=== PATIENT | male | born 1980 | race Two or more races ===

== ENCOUNTER 2016-12-14 05:36 | Inpatient (IN) | payer BC ==
[~2016-12-14] VITALS: Ht 177.8 cm; Wt 87.5 kg
[2016-12-14 06:15] LABS: Urine Bilirubin Negative (Negative); Urine Blood 2+ /uL (Negative); Urine Glucose Normal (Normal); Urine Ketone Negative (Negative); Urine Mucus FEW (None Seen); Urine Nitrite Negative (Negative); Urine RBC 4 /hpf (0 - 3); Urine Urobilinogen Normal (Negative); Urine pH 6.5 (5.0-8.0)
[2016-12-14 06:23] LABS: Urine Color Yellow (Yellow)
[2016-12-14 07:48] LABS: Basophils # (auto) 0 uL; Basophils % (auto) 0.3 % (0.0-2.0); Eosinophils # (auto) 0.1 uL; Eosinophils % (auto) 0.7 % (0.0-7.0); Hematocrit 40.1 % (41.0-53.0); Hemoglobin 13.7 g/dL (13.5-17.5); Lymphocytes # (auto) 1.2 uL; Lymphocytes % (auto) 8.1 % (10.0-50.0); Mean Corpuscular Hgb Conc. 34.3 g/dL (32.0-36.0); Mean Corpuscular Volume 90.5 fL (80.0-100.0); Mean Platelet Volume 6.7 fL (6.9-10.8); Monocytes # (auto) 1.3 uL; Monocytes % (auto) 8.2 % (0.0-12.0); Neutrophils # (auto) 12.7 uL; Neutrophils % (auto) 82.7 % (37.0-80.0); Platelet Count (auto) 355 10^3/uL (140-450); White Blood Cell 15.3 10^3/uL (4.4-10.8)
[2016-12-14] MEDS ORDERED: SODIUM CHLORIDE 0.9% 1,000 ML IVB ONE (08:10)
[2016-12-14 08:11] LABS: Albumin 3.1 g/dL (3.4-5.0); BUN/Creatinine Ratio 12.2; Bilirubin, Total 0.4 mg/dL (0.2-1.0); Calcium 9.3 mg/dL (8.5-10.1); Potassium 4.6 mmol/L (3.5-5.1); Total Protein 8.3 g/dL (6.4-8.2)
[2016-12-14] MEDS ORDERED: LEVOFLOXACIN 500MG 100 ML IV ONE (08:15)
[2016-12-14] MEDS ORDERED: NITROGLYCERIN 0.4 MG SL TAB SL PRN (08:45)
[2016-12-14] MEDS ORDERED: ALBUTEROL SULF 2.5 MG/0.5ML(0.5%) NEB SOLN NEB PRN (08:45)
[2016-12-14] MEDS ORDERED: MORPHINE SULF INJ 2 MG/ML SYRINGE 1ML IV PRN (08:45)
[2016-12-14] MEDS ORDERED: LACTULOSE 20Gm/30ML SOLN PO PRN (08:45)
[2016-12-14] MEDS ORDERED: LORazepam 0.5 MG TAB PO PRN (08:45)
[2016-12-14] MEDS ORDERED: PROMETHAZINE HCL 25 MG/ML 1ML IV PRN (08:45)
[2016-12-14] MEDS ORDERED: TUBERCULIN PPD 5 UNIT/0.1 ML ID ONE ×2 (08:45→11:45)
[2016-12-14] MEDS ORDERED: TEMAZEPAM 15 MG CAP PO PRN (08:45)
[2016-12-14] MEDS ORDERED: KETOROLAC TROMETH 30 MG/ML 1ML VIAL IV ONE (09:15)
[2016-12-14] MEDS ORDERED: IOHEXOL 300 MG/ML 100ML BOTTLE IJ ONE (09:27)
[2016-12-14 09:29] VITALS: BP 118/71
[2016-12-14] MEDS: LEVOFLOXACIN 500MG 100 ML IV SCH (09:42)
[2016-12-14] MEDS: ENOXAPARIN SOD 40 MG/0.4 ML SYRINGE SC SCH (10:13)
[2016-12-14] MEDS: ALBUTEROL SULF 2.5 MG/0.5ML(0.5%) NEB SOLN NEB SCH ×2 (12:52→19:05)
[2016-12-14] MEDS: CLINDAMYCIN 600MG IV 50 ML IV SCH ×2 (14:24→21:27)
[2016-12-14] MEDS: HYDROcodone-ACET 5/325MG TAB PO PRN (14:37)
[2016-12-14] MEDS: ACETAMINOPHEN 500 MG TAB PO PRN (19:53)
[2016-12-14] MEDS: MORPHINE SULF INJ 2 MG/ML SYRINGE 1ML IV PRN (19:53)
[2016-12-14 20:00] VITALS: BP 119/66
[2016-12-14 22:00] VITALS: BP 119/66
[2016-12-15] MEDS: ALBUTEROL SULF 2.5 MG/0.5ML(0.5%) NEB SOLN NEB SCH ×4 (00:48→18:58)
[2016-12-15] MEDS: MORPHINE SULF INJ 2 MG/ML SYRINGE 1ML IV PRN ×2 (01:04→05:23)
[2016-12-15] MEDS: HYDROcodone-ACET 5/325MG TAB PO PRN (04:28)
[2016-12-15 05:00] VITALS: BP 128/68
[2016-12-15] MEDS: CLINDAMYCIN 600MG IV 50 ML IV SCH ×2 (05:29→13:45)
[2016-12-15] MEDS ORDERED: HYDROmorphone HCL 2 MG/ML VL IV ONE (09:15)
[2016-12-15] MEDS: LEVOFLOXACIN 500MG 100 ML IV SCH (09:26)
[2016-12-15] MEDS: ENOXAPARIN SOD 40 MG/0.4 ML SYRINGE SC SCH (09:26)
[2016-12-15 09:41] LABS: Basophils # (auto) 0 uL; Basophils % (auto) 0.2 % (0.0-2.0); Eosinophils # (auto) 0 uL; Eosinophils % (auto) 0.2 % (0.0-7.0); Hematocrit 37.3 % (41.0-53.0); Hemoglobin 12.6 g/dL (13.5-17.5); Lymphocytes # (auto) 1.1 uL; Lymphocytes % (auto) 7.2 % (10.0-50.0); Mean Corpuscular Hemoglobin 30.8 pg (28.0-32.0); Mean Corpuscular Hgb Conc. 33.9 g/dL (32.0-36.0); Mean Platelet Volume 6.8 fL (6.9-10.8); Monocytes # (auto) 1.3 uL; Monocytes % (auto) 8.6 % (0.0-12.0); Neutrophils # (auto) 12.9 uL; Neutrophils % (auto) 83.8 % (37.0-80.0); Platelet Count (auto) 321 10^3/uL (140-450); Red Cell Distribution Width 13.2 % (11.8-14.3); White Blood Cell 15.4 10^3/uL (4.4-10.8)
[2016-12-15 09:56] VITALS: BP 119/73
[2016-12-15 10:07] LABS: Albumin 2.6 g/dL (3.4-5.0); BUN/Creatinine Ratio 12.2; Bilirubin, Total 0.6 mg/dL (0.2-1.0); Calcium 8.8 mg/dL (8.5-10.1); Potassium 4.1 mmol/L (3.5-5.1); Total Protein 7.7 g/dL (6.4-8.2)
[2016-12-15] MEDS: HYDROcodone-ACET 10/325MG TAB PO PRN ×2 (12:31→17:58)
[2016-12-15 13:49] VITALS: BP 118/69
[2016-12-15] MEDS ORDERED: VANCOMYCIN PER PHARMACY 0 MG IV SCH (14:00)
[2016-12-15] MEDS ORDERED: KETOROLAC TROMETH 30 MG/ML 1ML VIAL IV PRN (14:00)
[2016-12-15] MEDS ORDERED: cefTRIAXone 1GM/50ML D5W 50 ML IV ONE (14:45)
[2016-12-15 16:54] VITALS: BP 118/64
[2016-12-15] MEDS: VANCOMYCIN 1,250 MG in D5W 5% 250 ML IV SCH (17:44)
[2016-12-15 20:00] VITALS: BP 119/65
[2016-12-15 22:00] VITALS: BP 119/65
[2016-12-15] MEDS: ACETAMINOPHEN 500 MG TAB PO PRN (22:22)
[2016-12-16] MEDS: HYDROcodone-ACET 10/325MG TAB PO PRN ×4 (00:06→18:38)
[2016-12-16] MEDS: MORPHINE SULF INJ 2 MG/ML SYRINGE 1ML IV PRN ×3 (00:33→15:54)
[2016-12-16] MEDS: ALBUTEROL SULF 2.5 MG/0.5ML(0.5%) NEB SOLN NEB SCH ×4 (00:46→19:57)
[2016-12-16] MEDS: VANCOMYCIN 1,250 MG in D5W 5% 250 ML IV SCH ×3 (01:09→17:27)
[2016-12-16 05:00] VITALS: BP 113/66
[2016-12-16 05:42] LABS: Basophils # (auto) 0 uL; Basophils % (auto) 0.2 % (0.0-2.0); Eosinophils # (auto) 0.1 uL; Eosinophils % (auto) 0.8 % (0.0-7.0); Hematocrit 36.3 % (41.0-53.0); Hemoglobin 12.4 g/dL (13.5-17.5); Lymphocytes % (auto) 8.3 % (10.0-50.0); Mean Corpuscular Hemoglobin 31.1 pg (28.0-32.0); Mean Corpuscular Hgb Conc. 34.2 g/dL (32.0-36.0); Mean Corpuscular Volume 91.1 fL (80.0-100.0); Mean Platelet Volume 6.7 fL (6.9-10.8); Monocytes # (auto) 1.3 uL; Neutrophils # (auto) 10.2 uL; Neutrophils % (auto) 80.7 % (37.0-80.0); Nucleated Red Blood Cells % 0.1 %; Platelet Count (auto) 307 10^3/uL (140-450); Red Cell Distribution Width 13.2 % (11.8-14.3); White Blood Cell 12.6 10^3/uL (4.4-10.8)
[2016-12-16 05:58] LABS: INR 1.12 (0.9-1.15); Partial Thromboplastin Time 33.1 sec (22.64-33.71); Prothrombin Time 12.2 sec (9.37-12.3)
[2016-12-16 06:05] LABS: BUN/Creatinine Ratio 11.1; Calcium 8.7 mg/dL (8.5-10.1); Potassium 4.2 mmol/L (3.5-5.1)
[2016-12-16 08:00] VITALS: BP 110/60
[2016-12-16] MEDS ORDERED: cefTRIAXone 1GM/50ML D5W 50 ML IV SCH (09:00)
[2016-12-16 09:43] VITALS: BP 116/67
[2016-12-16] MEDS ORDERED: PIPERACILLIN-TAZOB 3.375GM 100 ML IV ONE (10:15)
[2016-12-16] MEDS ORDERED: PIPERACILLIN-TAZOB 3.375GM 100 ML IV SCH (12:00)
[2016-12-16] MEDS ORDERED: FLUCONAZOLE 200MG/100ML 100 ML IV ONE (12:15)
[2016-12-16 13:00] VITALS: BP 114/68
[2016-12-16] MEDS: metroNIDAZOLE 500MG/100ML 100 ML IV SCH ×2 (16:30→23:41)
[2016-12-16] MEDS: ACETAMINOPHEN 500 MG TAB PO PRN (17:49)
[2016-12-16 18:29] VITALS: BP 118/63
[2016-12-16] MEDS: PIPERACILLIN-TAZOB 3.375GM 100 ML IV SCH (20:44)
[2016-12-16 22:00] VITALS: BP 118/63
[2016-12-17] MEDS: VANCOMYCIN 1,250 MG in D5W 5% 250 ML IV SCH ×3 (01:28→18:16)
[2016-12-17] MEDS: HYDROcodone-ACET 10/325MG TAB PO PRN ×4 (01:29→22:28)
[2016-12-17] MEDS: PIPERACILLIN-TAZOB 3.375GM 100 ML IV SCH ×4 (03:00→22:21)
[2016-12-17 05:00] VITALS: BP 113/64
[2016-12-17] MEDS: ALBUTEROL SULF 2.5 MG/0.5ML(0.5%) NEB SOLN NEB SCH ×3 (05:58→19:13)
[2016-12-17] MEDS: metroNIDAZOLE 500MG/100ML 100 ML IV SCH (06:29)
[2016-12-17 07:18] LABS: Basophils # (auto) 0 uL; Basophils % (auto) 0.4 % (0.0-2.0); Eosinophils # (auto) 0.1 uL; Eosinophils % (auto) 1.2 % (0.0-7.0); Hematocrit 35.7 % (41.0-53.0); Hemoglobin 12.2 g/dL (13.5-17.5); Lymphocytes % (auto) 8.7 % (10.0-50.0); Mean Corpuscular Hemoglobin 31.1 pg (28.0-32.0); Mean Corpuscular Hgb Conc. 34.1 g/dL (32.0-36.0); Mean Corpuscular Volume 91.1 fL (80.0-100.0); Mean Platelet Volume 6.9 fL (6.9-10.8); Monocytes # (auto) 1.2 uL; Monocytes % (auto) 10.2 % (0.0-12.0); Neutrophils # (auto) 9.5 uL; Neutrophils % (auto) 79.5 % (37.0-80.0); Platelet Count (auto) 346 10^3/uL (140-450); Red Cell Distribution Width 13.4 % (11.8-14.3); White Blood Cell 11.9 10^3/uL (4.4-10.8)
[2016-12-17 07:50] LABS: Albumin 2.1 g/dL (3.4-5.0); Calcium 8.8 mg/dL (8.5-10.1); Potassium 4.2 mmol/L (3.5-5.1)
[2016-12-17 07:54] LABS: BUN/Creatinine Ratio 11.4; Bilirubin, Total 0.4 mg/dL (0.2-1.0); Total Protein 7.1 g/dL (6.4-8.2)
[2016-12-17 08:00] VITALS: BP 114/64
[2016-12-17 12:00] VITALS: BP 123/70
[2016-12-17 14:17] VITALS: BP 114/64
[2016-12-17] MEDS: FLUCONAZOLE 200MG/100ML 100 ML IV SCH (15:04)
[2016-12-17 17:00] VITALS: BP 127/64
[2016-12-17 22:00] VITALS: BP 117/67
[2016-12-18] MEDS: ALBUTEROL SULF 2.5 MG/0.5ML(0.5%) NEB SOLN NEB SCH ×4 (00:20→18:54)
[2016-12-18] MEDS: VANCOMYCIN 1,250 MG in D5W 5% 250 ML IV SCH ×3 (01:12→17:43)
[2016-12-18] MEDS: PIPERACILLIN-TAZOB 3.375GM 100 ML IV SCH ×4 (03:22→21:15)
[2016-12-18 05:00] VITALS: BP 125/69
[2016-12-18 07:26] LABS: Basophils # (auto) 0 uL; Basophils % (auto) 0.3 % (0.0-2.0); Eosinophils # (auto) 0.5 uL; Eosinophils % (auto) 4.5 % (0.0-7.0); Hematocrit 35.8 % (41.0-53.0); Hemoglobin 12.2 g/dL (13.5-17.5); Lymphocytes # (auto) 1.1 uL; Lymphocytes % (auto) 10.2 % (10.0-50.0); Mean Corpuscular Hemoglobin 31.2 pg (28.0-32.0); Mean Corpuscular Hgb Conc. 34.2 g/dL (32.0-36.0); Mean Corpuscular Volume 91.5 fL (80.0-100.0); Mean Platelet Volume 6.6 fL (6.9-10.8); Monocytes # (auto) 0.8 uL; Monocytes % (auto) 7.2 % (0.0-12.0); Neutrophils # (auto) 8.3 uL; Neutrophils % (auto) 77.8 % (37.0-80.0); Nucleated Red Blood Cells % 0.1 %; Platelet Count (auto) 390 10^3/uL (140-450); Red Cell Distribution Width 13.1 % (11.8-14.3); White Blood Cell 10.6 10^3/uL (4.4-10.8)
[2016-12-18 07:52] LABS: Albumin 2.1 g/dL (3.4-5.0); BUN/Creatinine Ratio 14.9; Bilirubin, Total 0.4 mg/dL (0.2-1.0); Calcium 8.7 mg/dL (8.5-10.1); Potassium 3.8 mmol/L (3.5-5.1); Total Protein 7.2 g/dL (6.4-8.2)
[2016-12-18] MEDS: HYDROcodone-ACET 10/325MG TAB PO PRN ×2 (08:45→15:42)
[2016-12-18] MEDS: FLUCONAZOLE 200MG/100ML 100 ML IV SCH (10:09)
[2016-12-18] MEDS: HYDROCORTONE 1% TOPICAL CREAM 30 GM TUBE TOP SCH ×2 (12:00→22:00)
[2016-12-18 14:56] VITALS: BP 122/61
[2016-12-18 18:27] VITALS: BP 117/67
[2016-12-18 22:00] VITALS: BP 122/64
[2016-12-19] MEDS: ALBUTEROL SULF 2.5 MG/0.5ML(0.5%) NEB SOLN NEB SCH ×4 (00:22→18:32)
[2016-12-19] MEDS: VANCOMYCIN 1,250 MG in D5W 5% 250 ML IV SCH (01:00)
[2016-12-19] MEDS: PIPERACILLIN-TAZOB 3.375GM 100 ML IV SCH ×2 (03:00→09:40)
[2016-12-19 05:00] VITALS: BP 130/65
[2016-12-19 05:48] LABS: Basophils # (auto) 0 uL; Basophils % (auto) 0.4 % (0.0-2.0); Eosinophils # (auto) 0.5 uL; Hematocrit 37.3 % (41.0-53.0); Hemoglobin 12.6 g/dL (13.5-17.5); Lymphocytes # (auto) 1.2 uL; Lymphocytes % (auto) 9.1 % (10.0-50.0); Mean Corpuscular Hgb Conc. 33.7 g/dL (32.0-36.0); Mean Platelet Volume 6.8 fL (6.9-10.8); Monocytes % (auto) 7.5 % (0.0-12.0); Neutrophils # (auto) 10.1 uL; Nucleated Red Blood Cells % 0.1 %; Platelet Count (auto) 438 10^3/uL (140-450); Red Cell Distribution Width 13.5 % (11.8-14.3); White Blood Cell 12.7 10^3/uL (4.4-10.8)
[2016-12-19 06:15] LABS: Albumin 2.3 g/dL (3.4-5.0); BUN/Creatinine Ratio 14.5; Bilirubin, Total 0.4 mg/dL (0.2-1.0); Calcium 8.9 mg/dL (8.5-10.1); Total Protein 7.7 g/dL (6.4-8.2)
[2016-12-19 09:00] VITALS: BP 112/56
[2016-12-19] MEDS: FLUCONAZOLE 200MG/100ML 100 ML IV SCH (09:40)
[2016-12-19] MEDS ORDERED: cefTRIAXone 1GM/50ML D5W 50 ML IV ONE (10:30)
[2016-12-19] MEDS: diphenhdrAMINE HCL 25 MG CAP PO PRN (10:39)
[2016-12-19] MEDS: HYDROcodone-ACET 10/325MG TAB PO PRN ×2 (10:39→20:26)
[2016-12-19] MEDS: HYDROCORTONE 1% TOPICAL CREAM 30 GM TUBE TOP SCH ×2 (10:40→22:06)
[2016-12-19 13:00] VITALS: BP 119/65
[2016-12-19] MEDS ORDERED: metroNIDAZOLE 500MG/100ML 100 ML IV SCH (14:00)
[2016-12-19] MEDS: VANCOMYCIN 1GM/250ML D5W 250 ML IV SCH (20:28)
[2016-12-19] MEDS: metroNIDAZOLE 500MG/100ML 100 ML IV SCH (22:06)
[2016-12-20] MEDS: ALBUTEROL SULF 2.5 MG/0.5ML(0.5%) NEB SOLN NEB SCH ×4 (00:24→19:38)
[2016-12-20] MEDS: VANCOMYCIN 1GM/250ML D5W 250 ML IV SCH ×3 (04:37→20:49)
[2016-12-20] MEDS: HYDROcodone-ACET 10/325MG TAB PO PRN ×3 (04:42→20:49)
[2016-12-20 05:24] VITALS: BP 120/69
[2016-12-20] MEDS ORDERED: SODIUM CHLORIDE 0.9 % NEB SOLN 3ML NEB ONE ×2 (05:33→11:00)
[2016-12-20] MEDS: metroNIDAZOLE 500MG/100ML 100 ML IV SCH ×3 (05:42→22:14)
[2016-12-20 06:37] LABS: Basophils % (auto) 0.5 % (0.0-2.0); Eosinophils # (auto) 0.6 uL; Hemoglobin 12.9 g/dL (13.5-17.5); Mean Corpuscular Hgb Conc. 34.1 g/dL (32.0-36.0); Monocytes # (auto) 0.7 uL; Red Cell Distribution Width 13.5 % (11.8-14.3)
[2016-12-20 06:39] LABS: Basophils # (auto) 0.1 uL; Eosinophils % (auto) 6.4 % (0.0-7.0); Hematocrit 37.8 % (41.0-53.0); Lymphocytes # (auto) 1.5 uL; Lymphocytes % (auto) 15.1 % (10.0-50.0); Mean Corpuscular Hemoglobin 31.4 pg (28.0-32.0); Mean Platelet Volume 6.8 fL (6.9-10.8); Neutrophils # (auto) 7.1 uL; Platelet Count (auto) 443 10^3/uL (140-450)
[2016-12-20 06:47] LABS: Calcium 9.1 mg/dL (8.5-10.1); Potassium 4.1 mmol/L (3.5-5.1)
[2016-12-20 06:51] LABS: Albumin 2.2 g/dL (3.4-5.0); BUN/Creatinine Ratio 14.5
[2016-12-20 06:52] LABS: Bilirubin, Total 0.4 mg/dL (0.2-1.0); Total Protein 7.7 g/dL (6.4-8.2)
[2016-12-20] MEDS: PRO-STAT 64 30ML PO SCH ×2 (08:05→17:44)
[2016-12-20 09:12] VITALS: BP 103/63
[2016-12-20] MEDS: cefTRIAXone 1GM/50ML D5W 50 ML IV SCH (12:08)
[2016-12-20] MEDS: FLUCONAZOLE 100 MG TAB PO SCH (12:08)
[2016-12-20] MEDS: HYDROCORTONE 1% TOPICAL CREAM 30 GM TUBE TOP SCH ×2 (12:09→22:14)
[2016-12-20 13:00] VITALS: BP 110/71
[2016-12-20 15:48] VITALS: BP 110/71
[2016-12-20 17:14] VITALS: BP 104/62
[2016-12-20 21:15] VITALS: BP 124/72
[2016-12-21] MEDS: ALBUTEROL SULF 2.5 MG/0.5ML(0.5%) NEB SOLN NEB SCH ×4 (00:12→19:15)
[2016-12-21] MEDS: VANCOMYCIN 1GM/250ML D5W 250 ML IV SCH ×3 (04:59→20:39)
[2016-12-21 05:00] VITALS: BP 105/65
[2016-12-21] MEDS: metroNIDAZOLE 500MG/100ML 100 ML IV SCH ×3 (05:53→22:22)
[2016-12-21 06:34] LABS: Albumin 2.3 g/dL (3.4-5.0); BUN/Creatinine Ratio 21.7; Bilirubin, Total 0.4 mg/dL (0.2-1.0); Calcium 8.9 mg/dL (8.5-10.1); Potassium 4.2 mmol/L (3.5-5.1); Total Protein 7.4 g/dL (6.4-8.2)
[2016-12-21] MEDS: PRO-STAT 64 30ML PO SCH ×2 (07:58→17:54)
[2016-12-21] MEDS ORDERED: LORazepam 0.5 MG TAB PO PRN (09:00)
[2016-12-21] MEDS ORDERED: TEMAZEPAM 15 MG CAP PO PRN (09:00)
[2016-12-21] MEDS: cefTRIAXone 1GM/50ML D5W 50 ML IV SCH (09:07)
[2016-12-21 09:31] VITALS: BP 106/57
[2016-12-21] MEDS: HYDROCORTONE 1% TOPICAL CREAM 30 GM TUBE TOP SCH ×2 (11:03→22:22)
[2016-12-21] MEDS: FLUCONAZOLE 100 MG TAB PO SCH (11:03)
[2016-12-21] MEDS ORDERED: IOHEXOL 350 MG/ML 100ML IJ ONE (12:44)
[2016-12-21 13:00] VITALS: BP 114/71
[2016-12-21] MEDS: HYDROcodone-ACET 10/325MG TAB PO PRN (13:52)
[2016-12-21 17:07] VITALS: BP 123/57
[2016-12-21 17:09] LABS: Coccidioides CF Antibody Comment: (.)
[2016-12-21 22:00] VITALS: BP 118/65
[2016-12-22] MEDS: HYDROcodone-ACET 10/325MG TAB PO PRN ×3 (03:39→16:33)
[2016-12-22 05:00] VITALS: BP 112/69
[2016-12-22] MEDS: VANCOMYCIN 1GM/250ML D5W 250 ML IV SCH ×3 (05:06→20:57)
[2016-12-22 05:20] LABS: Basophils # (auto) 0.1 uL; Monocytes # (auto) 0.9 uL; Monocytes % (auto) 6.2 % (0.0-12.0); Neutrophils # (auto) 11.9 uL; Red Cell Distribution Width 13.3 % (11.8-14.3)
[2016-12-22 05:25] LABS: Basophils % (auto) 0.6 % (0.0-2.0); Eosinophils # (auto) 0.6 uL; Eosinophils % (auto) 4.1 % (0.0-7.0); Hemoglobin 12.7 g/dL (13.5-17.5); Mean Corpuscular Hemoglobin 31.1 pg (28.0-32.0); Mean Corpuscular Hgb Conc. 34.4 g/dL (32.0-36.0); Mean Corpuscular Volume 90.2 fL (80.0-100.0); Mean Platelet Volume 6.4 fL (6.9-10.8); Neutrophils % (auto) 82.1 % (37.0-80.0); Nucleated Red Blood Cells % 0.1 %; Platelet Count (auto) 498 10^3/uL (140-450); White Blood Cell 14.5 10^3/uL (4.4-10.8)
[2016-12-22 05:36] LABS: Albumin 2.3 g/dL (3.4-5.0); Calcium 9.2 mg/dL (8.5-10.1); Potassium 4.6 mmol/L (3.5-5.1)
[2016-12-22 05:40] LABS: BUN/Creatinine Ratio 20.8
[2016-12-22 05:42] LABS: Bilirubin, Total 0.2 mg/dL (0.2-1.0); Total Protein 7.1 g/dL (6.4-8.2)
[2016-12-22] MEDS: ALBUTEROL SULF 2.5 MG/0.5ML(0.5%) NEB SOLN NEB SCH ×4 (06:08→19:54)
[2016-12-22] MEDS: metroNIDAZOLE 500MG/100ML 100 ML IV SCH ×3 (06:41→22:13)
[2016-12-22 08:00] VITALS: BP 101/52
[2016-12-22] MEDS: PRO-STAT 64 30ML PO SCH ×2 (08:00→20:28)
[2016-12-22 09:20] VITALS: BP 101/52
[2016-12-22] MEDS: cefTRIAXone 1GM/50ML D5W 50 ML IV SCH (09:54)
[2016-12-22] MEDS: FLUCONAZOLE 100 MG TAB PO SCH (09:55)
[2016-12-22] MEDS: HYDROCORTONE 1% TOPICAL CREAM 30 GM TUBE TOP SCH ×2 (09:55→22:00)
[2016-12-22 13:00] VITALS: BP 101/51
[2016-12-22 17:36] VITALS: BP 95/58
[2016-12-22 21:41] VITALS: BP 110/64
[2016-12-23] MEDS: ALBUTEROL SULF 2.5 MG/0.5ML(0.5%) NEB SOLN NEB SCH ×4 (00:30→19:49)
[2016-12-23 04:30] VITALS: BP 112/63
[2016-12-23] MEDS: VANCOMYCIN 1GM/250ML D5W 250 ML IV SCH ×3 (05:19→21:00)
[2016-12-23 06:39] LABS: Basophils # (auto) 0.1 uL; Eosinophils # (auto) 0.4 uL; Lymphocytes # (auto) 1.1 uL; Lymphocytes % (auto) 8.9 % (10.0-50.0); Mean Corpuscular Hemoglobin 31.1 pg (28.0-32.0); White Blood Cell 12.6 10^3/uL (4.4-10.8)
[2016-12-23] MEDS: HYDROcodone-ACET 10/325MG TAB PO PRN ×2 (06:40→14:28)
[2016-12-23] MEDS: metroNIDAZOLE 500MG/100ML 100 ML IV SCH ×3 (06:40→21:41)
[2016-12-23 06:41] LABS: Basophils % (auto) 0.7 % (0.0-2.0); Eosinophils % (auto) 3.3 % (0.0-7.0); Hematocrit 36.2 % (41.0-53.0); Hemoglobin 12.5 g/dL (13.5-17.5); Mean Corpuscular Hgb Conc. 34.4 g/dL (32.0-36.0); Mean Corpuscular Volume 90.3 fL (80.0-100.0); Mean Platelet Volume 6.5 fL (6.9-10.8); Monocytes % (auto) 8.3 % (0.0-12.0); Neutrophils # (auto) 9.9 uL; Neutrophils % (auto) 78.8 % (37.0-80.0); Platelet Count (auto) 479 10^3/uL (140-450); Red Cell Distribution Width 13.2 % (11.8-14.3)
[2016-12-23 07:01] LABS: BUN/Creatinine Ratio 16.7; Potassium 4.1 mmol/L (3.5-5.1)
[2016-12-23 08:00] VITALS: BP 110/64
[2016-12-23] MEDS: PRO-STAT 64 30ML PO SCH ×2 (08:00→18:00)
[2016-12-23 08:46] LABS: Platelet Estimate Increased
[2016-12-23 09:00] VITALS: BP 110/64
[2016-12-23] MEDS: cefTRIAXone 1GM/50ML D5W 50 ML IV SCH (09:06)
[2016-12-23] MEDS: HYDROCORTONE 1% TOPICAL CREAM 30 GM TUBE TOP SCH ×2 (10:00→21:41)
[2016-12-23] MEDS: FLUCONAZOLE 100 MG TAB PO SCH (11:16)
[2016-12-23 15:10] VITALS: BP 124/65
[2016-12-23] MEDS: ACETAMINOPHEN 500 MG TAB PO PRN (21:42)
[2016-12-23 21:57] VITALS: BP 117/66
[2016-12-24] MEDS: ALBUTEROL SULF 2.5 MG/0.5ML(0.5%) NEB SOLN NEB SCH ×4 (01:34→20:24)
[2016-12-24] MEDS: HYDROcodone-ACET 10/325MG TAB PO PRN ×4 (01:40→21:13)
[2016-12-24] MEDS: ACETAMINOPHEN 500 MG TAB PO PRN (03:02)
[2016-12-24 04:38] VITALS: BP 107/58
[2016-12-24] MEDS: VANCOMYCIN 1GM/250ML D5W 250 ML IV SCH ×3 (05:00→21:08)
[2016-12-24] MEDS: metroNIDAZOLE 500MG/100ML 100 ML IV SCH (05:38)
[2016-12-24 06:17] LABS: Basophils # (auto) 0.1 uL; Basophils % (auto) 0.4 % (0.0-2.0); Eosinophils # (auto) 0 uL; Eosinophils % (auto) 0.2 % (0.0-7.0)
[2016-12-24 06:20] LABS: Hematocrit 39.3 % (41.0-53.0); Hemoglobin 13.2 g/dL (13.5-17.5); Lymphocytes # (auto) 1.1 uL; Lymphocytes % (auto) 5.6 % (10.0-50.0); Mean Corpuscular Hemoglobin 30.5 pg (28.0-32.0); Mean Corpuscular Hgb Conc. 33.6 g/dL (32.0-36.0); Mean Corpuscular Volume 90.6 fL (80.0-100.0); Mean Platelet Volume 6.5 fL (6.9-10.8); Monocytes # (auto) 1.8 uL; Monocytes % (auto) 9.2 % (0.0-12.0); Neutrophils # (auto) 16.4 uL; Neutrophils % (auto) 84.6 % (37.0-80.0); Platelet Count (auto) 484 10^3/uL (140-450); Red Cell Distribution Width 13.3 % (11.8-14.3); White Blood Cell 19.4 10^3/uL (4.4-10.8)
[2016-12-24 06:31] LABS: BUN/Creatinine Ratio 17.5
[2016-12-24 07:35] VITALS: BP 114/61
[2016-12-24] MEDS: PRO-STAT 64 30ML PO SCH ×2 (08:00→17:36)
[2016-12-24] MEDS: SODIUM CHLORIDE 0.9% 1,000 ML IV SCH (10:00)
[2016-12-24] MEDS ORDERED: MEROPENEM 1GM IVPB 100 ML IV ONE (10:00)
[2016-12-24] MEDS: HYDROCORTONE 1% TOPICAL CREAM 30 GM TUBE TOP SCH ×2 (10:00→22:00)
[2016-12-24] MEDS: FLUCONAZOLE 100 MG TAB PO SCH (10:35)
[2016-12-24] MEDS: MORPHINE SULF INJ 2 MG/ML SYRINGE 1ML IV PRN ×2 (10:42→18:25)
[2016-12-24 11:53] VITALS: BP 115/65
[2016-12-24] MEDS: MEROPENEM 1GM IVPB 100 ML IV SCH ×2 (14:00→23:02)
[2016-12-24 15:05] LABS: Body Fluid Polymorphonuclear 89 %
[2016-12-24 16:48] VITALS: BP 105/61
[2016-12-24] MEDS ORDERED: LIDOCAINE HCL 2 % INJ 2ML MPF NEB ONE (17:30)
[2016-12-24] MEDS ORDERED: MEPERIDINE HCL (25 MG/ML) 1ML VIAL IM ONE (17:30)
[2016-12-24 20:00] VITALS: BP 118/64
[2016-12-24 21:31] VITALS: BP 118/64
[2016-12-25] MEDS: ALBUTEROL SULF 2.5 MG/0.5ML(0.5%) NEB SOLN NEB SCH ×4 (01:12→18:56)
[2016-12-25] MEDS: MORPHINE SULF INJ 2 MG/ML SYRINGE 1ML IV PRN ×3 (01:18→21:15)
[2016-12-25] MEDS: SODIUM CHLORIDE 0.9% 1,000 ML IV SCH ×2 (01:19→13:04)
[2016-12-25 05:00] VITALS: BP 110/59
[2016-12-25] MEDS: VANCOMYCIN 1GM/250ML D5W 250 ML IV SCH ×3 (05:12→21:17)
[2016-12-25 06:16] LABS: Basophils # (auto) 0.1 uL; Basophils % (auto) 0.6 % (0.0-2.0); Eosinophils # (auto) 0.3 uL; Eosinophils % (auto) 2.1 % (0.0-7.0); Hematocrit 35.6 % (41.0-53.0); Hemoglobin 11.8 g/dL (13.5-17.5); Lymphocytes # (auto) 1.2 uL; Lymphocytes % (auto) 9.6 % (10.0-50.0); Mean Corpuscular Hemoglobin 29.8 pg (28.0-32.0); Mean Corpuscular Hgb Conc. 33.1 g/dL (32.0-36.0); Mean Corpuscular Volume 90.2 fL (80.0-100.0); Mean Platelet Volume 6.4 fL (6.9-10.8); Monocytes # (auto) 1.2 uL; Monocytes % (auto) 9.5 % (0.0-12.0); Neutrophils # (auto) 9.7 uL; Neutrophils % (auto) 78.2 % (37.0-80.0); Platelet Count (auto) 429 10^3/uL (140-450); Red Cell Distribution Width 13.4 % (11.8-14.3); White Blood Cell 12.4 10^3/uL (4.4-10.8)
[2016-12-25 06:36] LABS: Albumin 1.8 g/dL (3.4-5.0); Calcium 8.4 mg/dL (8.5-10.1); Potassium 3.5 mmol/L (3.5-5.1)
[2016-12-25 06:39] LABS: Bilirubin, Total 0.2 mg/dL (0.2-1.0)
[2016-12-25] MEDS: MEROPENEM 1GM IVPB 100 ML IV SCH ×3 (07:00→22:30)
[2016-12-25] MEDS: HYDROcodone-ACET 10/325MG TAB PO PRN ×3 (07:22→18:37)
[2016-12-25] MEDS: PRO-STAT 64 30ML PO SCH ×2 (08:00→18:00)
[2016-12-25] MEDS ORDERED: LIDOCAINE 2%HCL (LOCAL ANESTH.) INJ 20ML MDV ONE (08:34)
[2016-12-25] MEDS ORDERED: BENZOCAINE (DENTAL) 20 % SPRAY 60ML MT ONE (08:34)
[2016-12-25] MEDS ORDERED: SODIUM CHLORIDE LOCK 10 ML ONE (08:35)
[2016-12-25] MEDS ORDERED: EPINEPHrine HCL 1 MG/1 ML AMP ONE (08:35)
[2016-12-25] MEDS ORDERED: LIDOCAINE HCL 2% TOP JELLY 5ML TOP ONE (08:35)
[2016-12-25 09:00] VITALS: BP 110/61
[2016-12-25] MEDS ORDERED: MIDAZOLAM HCL 5 MG/ML-1ML VIAL ONE (09:00)
[2016-12-25] MEDS: FLUCONAZOLE 100 MG TAB PO SCH (10:00)
[2016-12-25] MEDS: HYDROCORTONE 1% TOPICAL CREAM 30 GM TUBE TOP SCH ×2 (10:00→22:00)
[2016-12-25 13:00] VITALS: BP 125/67
[2016-12-25 17:00] VITALS: BP 115/62
[2016-12-25] MEDS: diphenhdrAMINE HCL 25 MG CAP PO PRN (18:36)
[2016-12-25 20:00] VITALS: BP 108/58
[2016-12-25 21:45] VITALS: BP 108/58
[2016-12-26] VITALS (7 sets, daily range): BP systolic 103–112; BP diastolic 59–63
[2016-12-26] MEDS: ALBUTEROL SULF 2.5 MG/0.5ML(0.5%) NEB SOLN NEB SCH ×4 (00:20→18:55)
[2016-12-26] MEDS: SODIUM CHLORIDE 0.9% 1,000 ML IV SCH ×2 (02:00→13:32)
[2016-12-26] MEDS: MORPHINE SULF INJ 2 MG/ML SYRINGE 1ML IV PRN ×5 (05:15→22:45)
[2016-12-26] MEDS: MEROPENEM 1GM IVPB 100 ML IV SCH ×3 (05:34→22:39)
[2016-12-26] MEDS ORDERED: SODIUM CHLORIDE 0.9 % NEB SOLN 3ML NEB ONE ×2 (05:47→13:24)
[2016-12-26 06:18] LABS: Basophils # (auto) 0.1 uL; Basophils % (auto) 0.5 % (0.0-2.0); Eosinophils # (auto) 0.2 uL; Eosinophils % (auto) 1.9 % (0.0-7.0); Hematocrit 34.7 % (41.0-53.0); Hemoglobin 11.9 g/dL (13.5-17.5); Lymphocytes % (auto) 8.1 % (10.0-50.0); Mean Corpuscular Hgb Conc. 34.2 g/dL (32.0-36.0); Mean Corpuscular Volume 90.7 fL (80.0-100.0); Mean Platelet Volume 6.3 fL (6.9-10.8); Monocytes # (auto) 0.9 uL; Monocytes % (auto) 7.2 % (0.0-12.0); Neutrophils # (auto) 10.3 uL; Neutrophils % (auto) 82.3 % (37.0-80.0); Platelet Count (auto) 509 10^3/uL (140-450); Red Cell Distribution Width 13.6 % (11.8-14.3); White Blood Cell 12.5 10^3/uL (4.4-10.8)
[2016-12-26] MEDS: VANCOMYCIN 1GM/250ML D5W 250 ML IV SCH ×4 (06:44→18:56)
[2016-12-26] MEDS: PRO-STAT 64 30ML PO SCH ×2 (08:00→17:35)
[2016-12-26] MEDS: HYDROCORTONE 1% TOPICAL CREAM 30 GM TUBE TOP SCH ×2 (09:05→22:00)
[2016-12-26] MEDS: FLUCONAZOLE 100 MG TAB PO SCH (09:07)
[2016-12-26] MEDS: diphenhdrAMINE HCL 25 MG CAP PO PRN ×2 (09:47→18:56)
[2016-12-26] MEDS ORDERED: LACTULOSE 20Gm/30ML SOLN PO PRN (10:30)
[2016-12-26] MEDS ORDERED: VANCOMYCIN PER PHARMACY 0 MG IV SCH (10:30)
[2016-12-26] MEDS ORDERED: ALBUTEROL SULF 2.5 MG/0.5ML(0.5%) NEB SOLN NEB PRN (10:30)
[2016-12-26] MEDS ORDERED: PROMETHAZINE HCL 25 MG/ML 1ML IV PRN (10:30)
[2016-12-26] MEDS ORDERED: ACETAMINOPHEN 500 MG TAB PO PRN (10:30)
[2016-12-26 11:49] LABS: INR 1.1 (0.9-1.15)
[2016-12-26] MEDS ORDERED: fentaNYL CITRATE 100 MCG/2 ML VL ONE (12:19)
[2016-12-26] MEDS ORDERED: LIDOCAINE 1% HCL (LOCAL ANESTH.) INJ 20ML MDV ID ONE (16:30)
[2016-12-26] MEDS: HYDROcodone-ACET 10/325MG TAB PO PRN (18:56)
[2016-12-26] MEDS: SODIUM CHLOR 0.9% PF (SALINE LOCK) 10ML VIAL IV SCH (22:38)
[2016-12-27] MEDS: ALBUTEROL SULF 2.5 MG/0.5ML(0.5%) NEB SOLN NEB SCH ×4 (00:13→18:26)
[2016-12-27] MEDS: VANCOMYCIN 1GM/250ML D5W 250 ML IV SCH ×4 (02:04→19:42)
[2016-12-27] MEDS: HYDROcodone-ACET 10/325MG TAB PO PRN ×2 (02:18→20:42)
[2016-12-27] MEDS: SODIUM CHLORIDE 0.9% 1,000 ML IV SCH (04:40)
[2016-12-27 05:00] VITALS: BP 110/66
[2016-12-27 06:27] LABS: Basophils # (auto) 0.1 uL; Eosinophils # (auto) 0.5 uL; Eosinophils % (auto) 5.7 % (0.0-7.0); Monocytes # (auto) 0.7 uL
[2016-12-27 06:33] LABS: Basophils % (auto) 1.1 % (0.0-2.0); Hematocrit 32.9 % (41.0-53.0); Hemoglobin 11.3 g/dL (13.5-17.5); Lymphocytes # (auto) 1.3 uL; Lymphocytes % (auto) 14.5 % (10.0-50.0); Mean Corpuscular Hemoglobin 31.2 pg (28.0-32.0); Mean Corpuscular Hgb Conc. 34.4 g/dL (32.0-36.0); Mean Corpuscular Volume 90.7 fL (80.0-100.0); Mean Platelet Volume 6.2 fL (6.9-10.8); Monocytes % (auto) 8.2 % (0.0-12.0); Neutrophils # (auto) 6.4 uL; Neutrophils % (auto) 70.5 % (37.0-80.0); Platelet Count (auto) 486 10^3/uL (140-450); Red Cell Distribution Width 13.4 % (11.8-14.3)
[2016-12-27 07:23] LABS: Albumin 1.8 g/dL (3.4-5.0); BUN/Creatinine Ratio 18.9; Bilirubin, Total 0.4 mg/dL (0.2-1.0); Calcium 8.4 mg/dL (8.5-10.1); Potassium 3.9 mmol/L (3.5-5.1); Total Protein 6.6 g/dL (6.4-8.2)
[2016-12-27] MEDS: MORPHINE SULF INJ 2 MG/ML SYRINGE 1ML IV PRN ×4 (07:35→22:07)
[2016-12-27] MEDS: MEROPENEM 1GM IVPB 100 ML IV SCH ×3 (07:36→21:52)
[2016-12-27] MEDS: PRO-STAT 64 30ML PO SCH ×2 (08:00→18:00)
[2016-12-27 09:20] VITALS: BP 102/66
[2016-12-27] MEDS: HYDROCORTONE 1% TOPICAL CREAM 30 GM TUBE TOP SCH ×2 (10:00→22:00)
[2016-12-27] MEDS: SODIUM CHLOR 0.9% PF (SALINE LOCK) 10ML VIAL IV SCH ×2 (10:27→22:12)
[2016-12-27] MEDS: FLUCONAZOLE 100 MG TAB PO SCH (10:27)
[2016-12-27 13:27] VITALS: BP 105/62
[2016-12-27 17:14] VITALS: BP 105/62
[2016-12-27 20:00] VITALS: BP 107/63
[2016-12-27 22:00] VITALS: BP 107/63
[2016-12-28] MEDS: ALBUTEROL SULF 2.5 MG/0.5ML(0.5%) NEB SOLN NEB SCH ×4 (00:58→18:54)
[2016-12-28] MEDS: VANCOMYCIN 1GM/250ML D5W 250 ML IV SCH ×4 (01:07→19:39)
[2016-12-28 05:00] VITALS: BP 118/63
[2016-12-28 05:14] LABS: Basophils # (auto) 0.1 uL; Basophils % (auto) 1.2 % (0.0-2.0); Eosinophils # (auto) 0.6 uL; Eosinophils % (auto) 7.7 % (0.0-7.0); Hematocrit 35.4 % (41.0-53.0); Hemoglobin 12.1 g/dL (13.5-17.5); Lymphocytes # (auto) 1.2 uL; Lymphocytes % (auto) 15.8 % (10.0-50.0); Mean Corpuscular Volume 90.9 fL (80.0-100.0); Mean Platelet Volume 6.1 fL (6.9-10.8); Monocytes # (auto) 0.6 uL; Monocytes % (auto) 8.7 % (0.0-12.0); Neutrophils # (auto) 4.9 uL; Neutrophils % (auto) 66.6 % (37.0-80.0); Nucleated Red Blood Cells % 0.1 %; Platelet Count (auto) 450 10^3/uL (140-450); Red Cell Distribution Width 13.5 % (11.8-14.3); White Blood Cell 7.3 10^3/uL (4.4-10.8)
[2016-12-28] MEDS: MORPHINE SULF INJ 2 MG/ML SYRINGE 1ML IV PRN ×4 (05:25→19:39)
[2016-12-28] MEDS: MEROPENEM 1GM IVPB 100 ML IV SCH ×3 (05:26→21:30)
[2016-12-28 05:37] LABS: Potassium 3.9 mmol/L (3.5-5.1)
[2016-12-28 05:42] LABS: Albumin 1.8 g/dL (3.4-5.0); BUN/Creatinine Ratio 25.5; Calcium 8.5 mg/dL (8.5-10.1)
[2016-12-28 05:53] LABS: Bilirubin, Total 0.1 mg/dL (0.2-1.0); Total Protein 6.4 g/dL (6.4-8.2)
[2016-12-28] MEDS: PRO-STAT 64 30ML PO SCH ×2 (08:00→18:00)
[2016-12-28] MEDS ORDERED: LORazepam 0.5 MG TAB PO PRN (09:15)
[2016-12-28 09:44] VITALS: BP 97/57
[2016-12-28] MEDS: HYDROCORTONE 1% TOPICAL CREAM 30 GM TUBE TOP SCH ×2 (10:00→21:30)
[2016-12-28] MEDS: FLUCONAZOLE 100 MG TAB PO SCH (10:23)
[2016-12-28] MEDS: SODIUM CHLOR 0.9% PF (SALINE LOCK) 10ML VIAL IV SCH ×2 (10:24→21:30)
[2016-12-28 14:31] VITALS: BP 102/63
[2016-12-28 17:13] VITALS: BP 108/63
[2016-12-28 20:00] VITALS: BP 97/62
[2016-12-28] MEDS: diphenhdrAMINE HCL 25 MG CAP PO PRN (21:29)
[2016-12-28] MEDS: HYDROcodone-ACET 10/325MG TAB PO PRN (21:29)
[2016-12-28 22:00] VITALS: BP 108/63
[2016-12-29] VITALS (7 sets, daily range): BP systolic 101–117; BP diastolic 55–71
[2016-12-29] MEDS: ALBUTEROL SULF 2.5 MG/0.5ML(0.5%) NEB SOLN NEB SCH ×5 (00:28→23:46)
[2016-12-29] MEDS: VANCOMYCIN 1GM/250ML D5W 250 ML IV SCH ×4 (02:32→23:52)
[2016-12-29] MEDS: MORPHINE SULF INJ 2 MG/ML SYRINGE 1ML IV PRN ×4 (02:43→22:43)
[2016-12-29] MEDS: MEROPENEM 1GM IVPB 100 ML IV SCH ×3 (05:55→22:44)
[2016-12-29 06:22] LABS: Basophils # (auto) 0.1 uL; Hemoglobin 11.6 g/dL (13.5-17.5); Monocytes # (auto) 0.7 uL; Monocytes % (auto) 8.8 % (0.0-12.0); Nucleated Red Blood Cells % 0.1 %; White Blood Cell 7.9 10^3/uL (4.4-10.8)
[2016-12-29 06:24] LABS: Basophils % (auto) 1.4 % (0.0-2.0); Eosinophils # (auto) 0.6 uL; Hematocrit 34.4 % (41.0-53.0); Lymphocytes # (auto) 1.4 uL; Lymphocytes % (auto) 17.8 % (10.0-50.0); Mean Corpuscular Hemoglobin 30.4 pg (28.0-32.0); Mean Corpuscular Hgb Conc. 33.7 g/dL (32.0-36.0); Mean Corpuscular Volume 90.2 fL (80.0-100.0); Mean Platelet Volume 6.2 fL (6.9-10.8); Neutrophils # (auto) 5.1 uL; Platelet Count (auto) 451 10^3/uL (140-450); Red Cell Distribution Width 13.4 % (11.8-14.3)
[2016-12-29 06:48] LABS: Calcium 8.7 mg/dL (8.5-10.1); Potassium 4.2 mmol/L (3.5-5.1)
[2016-12-29 06:51] LABS: BUN/Creatinine Ratio 24.2; Bilirubin, Total 0.3 mg/dL (0.2-1.0); Total Protein 6.6 g/dL (6.4-8.2)
[2016-12-29] MEDS: HYDROCORTONE 1% TOPICAL CREAM 30 GM TUBE TOP SCH ×2 (10:00→22:45)
[2016-12-29] MEDS: FLUCONAZOLE 100 MG TAB PO SCH (10:16)
[2016-12-29] MEDS: SODIUM CHLOR 0.9% PF (SALINE LOCK) 10ML VIAL IV SCH ×2 (10:17→22:44)
[2016-12-29] MEDS: PRO-STAT 64 30ML PO SCH ×2 (10:17→19:02)
[2016-12-29] MEDS: HYDROcodone-ACET 10/325MG TAB PO PRN (13:03)
[2016-12-30 04:26] VITALS: BP 111/59
[2016-12-30] MEDS: ALBUTEROL SULF 2.5 MG/0.5ML(0.5%) NEB SOLN NEB SCH ×3 (05:59→19:22)
[2016-12-30] MEDS: MEROPENEM 1GM IVPB 100 ML IV SCH ×3 (06:01→21:57)
[2016-12-30] MEDS: MORPHINE SULF INJ 2 MG/ML SYRINGE 1ML IV PRN ×2 (06:01→12:27)
[2016-12-30 08:00] VITALS: BP 100/53
[2016-12-30 09:00] VITALS: BP 100/53
[2016-12-30] MEDS: VANCOMYCIN 1GM/250ML D5W 250 ML IV SCH ×3 (09:31→23:51)
[2016-12-30] MEDS: PRO-STAT 64 30ML PO SCH ×2 (09:32→18:02)
[2016-12-30] MEDS: HYDROcodone-ACET 10/325MG TAB PO PRN ×3 (09:33→22:21)
[2016-12-30] MEDS: SODIUM CHLOR 0.9% PF (SALINE LOCK) 10ML VIAL IV SCH ×2 (09:33→21:56)
[2016-12-30] MEDS: HYDROCORTONE 1% TOPICAL CREAM 30 GM TUBE TOP SCH ×2 (09:33→21:58)
[2016-12-30] MEDS: FLUCONAZOLE 100 MG TAB PO SCH (09:33)
[2016-12-30 13:00] VITALS: BP 104/64
[2016-12-30 17:00] VITALS: BP 102/65
[2016-12-30 22:00] VITALS: BP 106/60
[2016-12-31] MEDS: ALBUTEROL SULF 2.5 MG/0.5ML(0.5%) NEB SOLN NEB SCH ×4 (00:06→19:46)
[2016-12-31 04:29] VITALS: BP 104/59
[2016-12-31] MEDS: MEROPENEM 1GM IVPB 100 ML IV SCH ×3 (05:42→22:30)
[2016-12-31] MEDS: HYDROcodone-ACET 10/325MG TAB PO PRN ×3 (06:14→18:32)
[2016-12-31 07:49] LABS: Basophils # (auto) 0.1 uL; Basophils % (auto) 1.5 % (0.0-2.0); Eosinophils # (auto) 0.4 uL; Eosinophils % (auto) 5.2 % (0.0-7.0); Hematocrit 35.8 % (41.0-53.0); Lymphocytes # (auto) 0.9 uL; Lymphocytes % (auto) 12.4 % (10.0-50.0); Mean Corpuscular Hemoglobin 29.9 pg (28.0-32.0); Mean Corpuscular Hgb Conc. 33.4 g/dL (32.0-36.0); Mean Corpuscular Volume 89.5 fL (80.0-100.0); Mean Platelet Volume 5.9 fL (6.9-10.8); Monocytes # (auto) 0.7 uL; Monocytes % (auto) 9.5 % (0.0-12.0); Neutrophils # (auto) 5.3 uL; Neutrophils % (auto) 71.4 % (37.0-80.0); Nucleated Red Blood Cells % 0.1 %; Platelet Count (auto) 409 10^3/uL (140-450); Red Cell Distribution Width 13.3 % (11.8-14.3); White Blood Cell 7.5 10^3/uL (4.4-10.8)
[2016-12-31] MEDS: PRO-STAT 64 30ML PO SCH ×2 (08:00→18:00)
[2016-12-31 08:23] LABS: Albumin 2.1 g/dL (3.4-5.0); BUN/Creatinine Ratio 18.9; Bilirubin, Total 0.3 mg/dL (0.2-1.0); Calcium 8.7 mg/dL (8.5-10.1); Potassium 4.4 mmol/L (3.5-5.1); Total Protein 7.2 g/dL (6.4-8.2)
[2016-12-31] MEDS: VANCOMYCIN 1GM/250ML D5W 250 ML IV SCH ×2 (08:35→16:05)
[2016-12-31] MEDS: SODIUM CHLOR 0.9% PF (SALINE LOCK) 10ML VIAL IV SCH ×2 (08:35→22:10)
[2016-12-31 09:00] VITALS: BP 95/58
[2016-12-31] MEDS ORDERED: FLUCONAZOLE 100 MG TAB PO SCH (10:00)
[2016-12-31 13:00] VITALS: BP 102/62
[2016-12-31] MEDS: SODIUM CHLORIDE 0.9% 1,000 ML IV SCH (16:05)
[2016-12-31 17:00] VITALS: BP 111/67
[2016-12-31 22:00] VITALS: BP 108/59
[2017-01-01] MEDS: VANCOMYCIN 1GM/250ML D5W 250 ML IV SCH ×3 (00:15→16:09)
[2017-01-01] MEDS: ALBUTEROL SULF 2.5 MG/0.5ML(0.5%) NEB SOLN NEB SCH ×4 (00:57→18:00)
[2017-01-01] MEDS: HYDROcodone-ACET 10/325MG TAB PO PRN ×4 (02:37→22:34)
[2017-01-01] MEDS: SODIUM CHLORIDE 0.9% 1,000 ML IV SCH ×2 (04:19→17:55)
[2017-01-01 05:10] VITALS: BP 104/58
[2017-01-01] MEDS: MEROPENEM 1GM IVPB 100 ML IV SCH ×3 (06:23→22:02)
[2017-01-01 07:51] LABS: Albumin 2.2 g/dL (3.4-5.0); BUN/Creatinine Ratio 19.2; Bilirubin, Total 0.3 mg/dL (0.2-1.0); Calcium 8.6 mg/dL (8.5-10.1); Potassium 4.2 mmol/L (3.5-5.1); Total Protein 7.1 g/dL (6.4-8.2)
[2017-01-01 08:11] VITALS: BP 102/54
[2017-01-01] MEDS: PRO-STAT 64 30ML PO SCH ×2 (08:24→18:07)
[2017-01-01] MEDS: SODIUM CHLOR 0.9% PF (SALINE LOCK) 10ML VIAL IV SCH ×2 (08:27→22:00)
[2017-01-01] MEDS ORDERED: diphenhdrAMINE HCL 25 MG CAP PO PRN (09:30)
[2017-01-01] MEDS: FLORASTOR (S. BOULARDII) 250 MG CAP PO SCH (10:45)
[2017-01-01 11:09] LABS: INR 1.05 (0.9-1.15); Partial Thromboplastin Time 28.7 sec (22.64-33.71); Prothrombin Time 11.4 sec (9.37-12.3)
[2017-01-01 11:54] VITALS: BP 106/57
[2017-01-01 16:44] VITALS: BP 111/64
[2017-01-01 21:49] VITALS: BP 109/57
[2017-01-01] MEDS: TEMAZEPAM 15 MG CAP PO PRN ×2 (22:35→22:36)
[2017-01-02] MEDS: VANCOMYCIN 1GM/250ML D5W 250 ML IV SCH ×3 (00:19→16:36)
[2017-01-02 03:26] VITALS: BP 109/57
[2017-01-02 05:00] VITALS: BP 96/55
[2017-01-02] MEDS: MEROPENEM 1GM IVPB 100 ML IV SCH ×3 (06:24→22:33)
[2017-01-02] MEDS: ALBUTEROL SULF 2.5 MG/0.5ML(0.5%) NEB SOLN NEB SCH ×4 (06:35→19:16)
[2017-01-02] MEDS: SODIUM CHLORIDE 0.9% 1,000 ML IV SCH (07:15)
[2017-01-02 08:00] VITALS: BP 108/56
[2017-01-02] MEDS: PRO-STAT 64 30ML PO SCH ×2 (08:00→17:22)
[2017-01-02 09:00] VITALS: BP 105/56
[2017-01-02] MEDS: SODIUM CHLOR 0.9% PF (SALINE LOCK) 10ML VIAL IV SCH ×2 (09:36→22:12)
[2017-01-02] MEDS: FLORASTOR (S. BOULARDII) 250 MG CAP PO SCH (09:36)
[2017-01-02] MEDS ORDERED: ROCURONIUM 10MG/ML 10ML VIAL IV ONE (11:30)
[2017-01-02] MEDS ORDERED: fentaNYL CITRATE 5 ML ONE (11:30)
[2017-01-02] MEDS ORDERED: MIDAZOLAM HCL 1MG/1ML-2 ML VIAL ONE (11:31)
[2017-01-02] MEDS ORDERED: LIDOCAINE HCL 2 %PF INJ 10ML AMP IJ ONE (11:39)
[2017-01-02] MEDS ORDERED: METOCLOPRAMIDE HCL 5MG/ml INJ 2ml VIAL ONE (11:39)
[2017-01-02] MEDS ORDERED: ONDANSETRON HCL 4 MG/2 ML VIAL ONE ×2 (11:39→13:57)
[2017-01-02] MEDS ORDERED: PROPOFOL 10 MG/ML 20 ML IV ONE (12:06)
[2017-01-02] MEDS ORDERED: BUPIVACAINE W/ EPINEPH 0.25% INJ 50ML MDV ONE (12:19)
[2017-01-02] MEDS ORDERED: GLYCOPYRROLATE 0.2 MG/ML 1ML VIAL ONE (13:19)
[2017-01-02] MEDS ORDERED: NEOSTIGMINE 1 MG/ML INJ (10mg/10ML VIAL) ONE (13:19)
[2017-01-02] MEDS ORDERED: fentaNYL CITRATE 100 MCG/2 ML VL ONE (13:31)
[2017-01-02] MEDS ORDERED: HYDROmorphone HCL 2 MG/ML VL ONE (13:57)
[2017-01-02] MEDS ORDERED: KETOROLAC TROMETH 30 MG/ML 1ML VIAL ONE (13:58)
[2017-01-02] MEDS: HYDROmorphone HCL 2 MG/ML VL IV PRN ×5 (14:00→16:38)
[2017-01-02] MEDS: KETOROLAC TROMETH 30 MG/ML 1ML VIAL IV ONE ×2 (14:00→14:10)
[2017-01-02] MEDS ORDERED: NALOXONE HCL 0.4 MG/ML VIAL IV PRN (14:00)
[2017-01-02] MEDS ORDERED: ONDANSETRON HCL 4 MG/2 ML VIAL IV ONE (14:00)
[2017-01-02] MEDS ORDERED: HYDROmorphone HCL 2 MG/ML VL IV ONE (14:45)
[2017-01-02] MEDS: HYDROcodone-ACET 10/325MG TAB PO PRN (17:32)
[2017-01-02 19:48] VITALS: BP 137/83
[2017-01-03] VITALS (7 sets, daily range): BP systolic 113–136; BP diastolic 68–89
[2017-01-03] MEDS: HYDROcodone-ACET 10/325MG TAB PO PRN ×3 (00:19→17:51)
[2017-01-03] MEDS: ALBUTEROL SULF 2.5 MG/0.5ML(0.5%) NEB SOLN NEB SCH ×4 (00:30→19:30)
[2017-01-03] MEDS: HYDROmorphone HCL 2 MG/ML VL IV PRN ×7 (01:27→23:28)
[2017-01-03] MEDS: VANCOMYCIN 1GM/250ML D5W 250 ML IV SCH ×3 (01:38→15:20)
[2017-01-03 04:55] LABS: Basophils # (auto) 0.1 uL; Basophils % (auto) 0.8 % (0.0-2.0); Eosinophils # (auto) 0.3 uL; Eosinophils % (auto) 2.9 % (0.0-7.0); Hematocrit 32.9 % (41.0-53.0); Hemoglobin 11.4 g/dL (13.5-17.5); Lymphocytes % (auto) 9.4 % (10.0-50.0); Mean Corpuscular Hemoglobin 30.3 pg (28.0-32.0); Mean Corpuscular Hgb Conc. 34.5 g/dL (32.0-36.0); Mean Corpuscular Volume 87.7 fL (80.0-100.0); Monocytes % (auto) 9.8 % (0.0-12.0); Neutrophils # (auto) 7.8 uL; Neutrophils % (auto) 77.1 % (37.0-80.0); Nucleated Red Blood Cells % 0.1 %; Platelet Count (auto) 352 10^3/uL (140-450); Red Cell Distribution Width 13.1 % (11.8-14.3); White Blood Cell 10.1 10^3/uL (4.4-10.8)
[2017-01-03 05:15] LABS: BUN/Creatinine Ratio 14.8; Bilirubin, Total 0.5 mg/dL (0.2-1.0); Calcium 8.2 mg/dL (8.5-10.1); Potassium 4.3 mmol/L (3.5-5.1); Total Protein 6.6 g/dL (6.4-8.2)
[2017-01-03] MEDS: MEROPENEM 1GM IVPB 100 ML IV SCH ×3 (05:46→22:25)
[2017-01-03] MEDS: PRO-STAT 64 30ML PO SCH ×2 (08:17→17:51)
[2017-01-03] MEDS: SODIUM CHLORIDE 0.9% 1,000 ML IV SCH ×2 (08:17→09:55)
[2017-01-03] MEDS: SODIUM CHLOR 0.9% PF (SALINE LOCK) 10ML VIAL IV SCH ×2 (10:03→22:25)
[2017-01-03] MEDS: FLORASTOR (S. BOULARDII) 250 MG CAP PO SCH (10:03)
[2017-01-04] MEDS: VANCOMYCIN 1GM/250ML D5W 250 ML IV SCH ×3 (00:20→16:13)
[2017-01-04] MEDS: SODIUM CHLORIDE 0.9% 1,000 ML IV SCH (00:20)
[2017-01-04] MEDS: ALBUTEROL SULF 2.5 MG/0.5ML(0.5%) NEB SOLN NEB SCH ×4 (00:50→19:39)
[2017-01-04] MEDS: HYDROmorphone HCL 2 MG/ML VL IV PRN ×6 (03:20→20:10)
[2017-01-04 05:00] VITALS: BP 116/68
[2017-01-04] MEDS: MEROPENEM 1GM IVPB 100 ML IV SCH (06:02)
[2017-01-04 06:51] LABS: Basophils # (auto) 0.1 uL; Basophils % (auto) 1.1 % (0.0-2.0); Eosinophils # (auto) 0.7 uL; Eosinophils % (auto) 7.6 % (0.0-7.0); Hematocrit 30.5 % (41.0-53.0); Hemoglobin 10.4 g/dL (13.5-17.5); Lymphocytes # (auto) 0.9 uL; Lymphocytes % (auto) 9.4 % (10.0-50.0); Mean Corpuscular Hemoglobin 29.9 pg (28.0-32.0); Mean Corpuscular Hgb Conc. 34.2 g/dL (32.0-36.0); Mean Corpuscular Volume 87.4 fL (80.0-100.0); Mean Platelet Volume 6.2 fL (6.9-10.8); Monocytes # (auto) 0.8 uL; Monocytes % (auto) 8.2 % (0.0-12.0); Neutrophils # (auto) 6.9 uL; Neutrophils % (auto) 73.7 % (37.0-80.0); Platelet Count (auto) 310 10^3/uL (140-450); Red Cell Distribution Width 13.5 % (11.8-14.3); White Blood Cell 9.3 10^3/uL (4.4-10.8)
[2017-01-04 07:02] LABS: BUN/Creatinine Ratio 15.8; Calcium 8.5 mg/dL (8.5-10.1); Potassium 3.9 mmol/L (3.5-5.1)
[2017-01-04 08:44] VITALS: BP 126/74
[2017-01-04] MEDS: KETOROLAC TROMETH 30 MG/ML 1ML VIAL IV PRN ×2 (09:04→18:06)
[2017-01-04] MEDS: PRO-STAT 64 30ML PO SCH ×2 (09:32→17:40)
[2017-01-04] MEDS: SODIUM CHLOR 0.9% PF (SALINE LOCK) 10ML VIAL IV SCH ×2 (09:33→21:44)
[2017-01-04] MEDS: FLORASTOR (S. BOULARDII) 250 MG CAP PO SCH (11:02)
[2017-01-04] MEDS ORDERED: FUROSEMIDE 20 MG/2 ML VIAL IV ONE (14:00)
[2017-01-04] MEDS ORDERED: LORazepam 0.5 MG TAB PO PRN (14:00)
[2017-01-04] MEDS ORDERED: POTASSIUM CHL 20 Meq TABLET PO ONE (14:00)
[2017-01-04] MEDS: cefTRIAXone 1GM/50ML D5W 50 ML IV SCH (14:07)
[2017-01-04] MEDS: HYDROcodone-ACET 10/325MG TAB PO PRN (15:54)
[2017-01-04 16:43] VITALS: BP 130/72
[2017-01-04 18:00] VITALS: BP 117/66
[2017-01-04 19:42] VITALS: BP 130/72
[2017-01-04] MEDS: DOCUSATE SOD 100 MG CAP PO SCH (21:43)
[2017-01-04 22:00] VITALS: BP 117/66
[2017-01-05] MEDS: VANCOMYCIN 1GM/250ML D5W 250 ML IV SCH ×3 (00:14→16:07)
[2017-01-05] MEDS: HYDROmorphone HCL 2 MG/ML VL IV PRN ×7 (00:14→22:10)
[2017-01-05] MEDS: ALBUTEROL SULF 2.5 MG/0.5ML(0.5%) NEB SOLN NEB SCH ×4 (00:34→18:58)
[2017-01-05] MEDS: KETOROLAC TROMETH 30 MG/ML 1ML VIAL IV PRN ×3 (04:32→17:59)
[2017-01-05 05:34] LABS: Basophils # (auto) 0.1 uL; Basophils % (auto) 0.8 % (0.0-2.0); Eosinophils % (auto) 12.3 % (0.0-7.0); Hematocrit 28.9 % (41.0-53.0); Lymphocytes # (auto) 0.8 uL; Lymphocytes % (auto) 10.5 % (10.0-50.0); Mean Corpuscular Hemoglobin 30.3 pg (28.0-32.0); Mean Corpuscular Hgb Conc. 34.5 g/dL (32.0-36.0); Mean Corpuscular Volume 87.6 fL (80.0-100.0); Mean Platelet Volume 6.2 fL (6.9-10.8); Monocytes # (auto) 0.6 uL; Monocytes % (auto) 7.7 % (0.0-12.0); Neutrophils # (auto) 5.3 uL; Neutrophils % (auto) 68.7 % (37.0-80.0); Platelet Count (auto) 317 10^3/uL (140-450); White Blood Cell 7.7 10^3/uL (4.4-10.8)
[2017-01-05 05:46] VITALS: BP 123/65
[2017-01-05 05:53] LABS: Calcium 8.2 mg/dL (8.5-10.1); Potassium 4.5 mmol/L (3.5-5.1)
[2017-01-05] MEDS: PRO-STAT 64 30ML PO SCH ×2 (08:00→18:03)
[2017-01-05 09:00] VITALS: BP 119/73
[2017-01-05] MEDS: DOCUSATE SOD 100 MG CAP PO SCH ×2 (09:00→22:04)
[2017-01-05] MEDS: FLORASTOR (S. BOULARDII) 250 MG CAP PO SCH (09:00)
[2017-01-05] MEDS: cefTRIAXone 1GM/50ML D5W 50 ML IV SCH (09:01)
[2017-01-05] MEDS: SODIUM CHLOR 0.9% PF (SALINE LOCK) 10ML VIAL IV SCH ×2 (09:02→22:04)
[2017-01-05 13:00] VITALS: BP 128/65
[2017-01-05 17:38] VITALS: BP 147/71
[2017-01-05 22:00] VITALS: BP 122/68
[2017-01-06] MEDS: TEMAZEPAM 15 MG CAP PO PRN ×2 (00:09→21:35)
[2017-01-06] MEDS: VANCOMYCIN 1GM/250ML D5W 250 ML IV SCH ×2 (00:09→08:55)
[2017-01-06] MEDS: ALBUTEROL SULF 2.5 MG/0.5ML(0.5%) NEB SOLN NEB SCH ×4 (01:18→20:20)
[2017-01-06] MEDS: HYDROmorphone HCL 2 MG/ML VL IV PRN ×6 (03:17→20:20)
[2017-01-06] MEDS: HYDROcodone-ACET 10/325MG TAB PO PRN ×3 (04:19→18:32)
[2017-01-06 05:00] VITALS: BP 124/73
[2017-01-06] MEDS: PRO-STAT 64 30ML PO SCH ×2 (08:55→18:15)
[2017-01-06 09:28] VITALS: BP 131/75
[2017-01-06] MEDS: FLORASTOR (S. BOULARDII) 250 MG CAP PO SCH (09:39)
[2017-01-06] MEDS: DOCUSATE SOD 100 MG CAP PO SCH ×2 (09:39→21:35)
[2017-01-06] MEDS: cefTRIAXone 1GM/50ML D5W 50 ML IV SCH (09:39)
[2017-01-06] MEDS: SODIUM CHLOR 0.9% PF (SALINE LOCK) 10ML VIAL IV SCH ×2 (10:00→21:35)
[2017-01-06 12:47] VITALS: BP 118/67
[2017-01-06 16:46] VITALS: BP 114/72
[2017-01-06] MEDS: VANCOMYCIN 1,250 MG in D5W 5% 250 ML IV SCH (17:08)
[2017-01-06 22:00] VITALS: BP 114/64
[2017-01-07] MEDS: ALBUTEROL SULF 2.5 MG/0.5ML(0.5%) NEB SOLN NEB SCH ×4 (00:03→19:46)
[2017-01-07] MEDS: VANCOMYCIN 1,250 MG in D5W 5% 250 ML IV SCH ×3 (00:10→20:06)
[2017-01-07] MEDS: HYDROmorphone HCL 2 MG/ML VL IV PRN ×4 (00:11→20:06)
[2017-01-07 05:00] VITALS: BP 115/67
[2017-01-07 06:36] LABS: Albumin 2.1 g/dL (3.4-5.0); Potassium 4.2 mmol/L (3.5-5.1)
[2017-01-07 06:38] LABS: BUN/Creatinine Ratio 18.9; Calcium 9.2 mg/dL (8.5-10.1)
[2017-01-07 06:39] LABS: Hematocrit 31.5 % (41.0-53.0); Hemoglobin 10.6 g/dL (13.5-17.5); Mean Corpuscular Hemoglobin 29.4 pg (28.0-32.0); Mean Corpuscular Hgb Conc. 33.7 g/dL (32.0-36.0); Mean Corpuscular Volume 87.2 fL (80.0-100.0); Mean Platelet Volume 5.9 fL (6.9-10.8); Platelet Count (auto) 350 10^3/uL (140-450); Red Cell Distribution Width 13.5 % (11.8-14.3); White Blood Cell 6.5 10^3/uL (4.4-10.8)
[2017-01-07 06:41] LABS: Bilirubin, Total 0.3 mg/dL (0.2-1.0); Total Protein 6.5 g/dL (6.4-8.2)
[2017-01-07 06:45] LABS: Metamyelocytes % 0; Myelocytes % 0; Promyelocytes % 0; Reactive Lymphocytes 0
[2017-01-07] MEDS: HYDROcodone-ACET 10/325MG TAB PO PRN (08:23)
[2017-01-07 09:00] VITALS: BP 120/72
[2017-01-07] MEDS: DOCUSATE SOD 100 MG CAP PO SCH ×2 (10:04→21:21)
[2017-01-07] MEDS: FLORASTOR (S. BOULARDII) 250 MG CAP PO SCH (10:04)
[2017-01-07] MEDS: cefTRIAXone 1GM/50ML D5W 50 ML IV SCH (10:04)
[2017-01-07] MEDS: SODIUM CHLOR 0.9% PF (SALINE LOCK) 10ML VIAL IV SCH ×2 (10:04→21:23)
[2017-01-07] MEDS: PRO-STAT 64 30ML PO SCH ×2 (10:04→18:00)
[2017-01-07 10:10] LABS: Platelet Estimate Adequate
[2017-01-07] MEDS ORDERED: ACETAMINOPHEN 500 MG TAB PO PRN (12:00)
[2017-01-07] MEDS ORDERED: PROMETHAZINE HCL 25 MG/ML 1ML IV PRN (12:00)
[2017-01-07] MEDS ORDERED: LACTULOSE 20Gm/30ML SOLN PO PRN (12:00)
[2017-01-07] MEDS ORDERED: VANCOMYCIN PER PHARMACY 0 MG IV SCH (12:00)
[2017-01-07] MEDS ORDERED: ALBUTEROL SULF 2.5 MG/0.5ML(0.5%) NEB SOLN NEB PRN (12:00)
[2017-01-07 13:00] VITALS: BP 117/63
[2017-01-07] MEDS: HYDROcodone-ACET 5/325MG TAB PO PRN (16:07)
[2017-01-07 17:00] VITALS: BP 117/67
[2017-01-07 19:49] VITALS: BP 117/67
[2017-01-07] MEDS: TEMAZEPAM 15 MG CAP PO PRN (21:27)
[2017-01-07 22:00] VITALS: BP 113/77
[2017-01-08] MEDS: ALBUTEROL SULF 2.5 MG/0.5ML(0.5%) NEB SOLN NEB SCH ×4 (00:32→19:16)
[2017-01-08] MEDS: VANCOMYCIN 1,250 MG in D5W 5% 250 ML IV SCH ×3 (03:27→19:39)
[2017-01-08] MEDS: HYDROmorphone HCL 2 MG/ML VL IV PRN ×3 (04:10→19:53)
[2017-01-08 06:00] VITALS: BP 110/71
[2017-01-08 06:48] LABS: Hematocrit 31.5 % (41.0-53.0); Hemoglobin 10.8 g/dL (13.5-17.5); Mean Corpuscular Hemoglobin 29.9 pg (28.0-32.0); Mean Corpuscular Hgb Conc. 34.4 g/dL (32.0-36.0); Mean Corpuscular Volume 87.1 fL (80.0-100.0); Platelet Count (auto) 366 10^3/uL (140-450); Red Cell Distribution Width 13.6 % (11.8-14.3); White Blood Cell 6.9 10^3/uL (4.4-10.8)
[2017-01-08 07:21] LABS: Albumin 2.2 g/dL (3.4-5.0); BUN/Creatinine Ratio 14.3; Bilirubin, Total 0.3 mg/dL (0.2-1.0); Calcium 8.9 mg/dL (8.5-10.1); Potassium 4.1 mmol/L (3.5-5.1); Total Protein 7.2 g/dL (6.4-8.2)
[2017-01-08 07:31] LABS: Metamyelocytes % 0; Myelocytes % 0; Promyelocytes % 0; Reactive Lymphocytes 0
[2017-01-08] MEDS: PRO-STAT 64 30ML PO SCH ×2 (07:39→17:07)
[2017-01-08 09:00] VITALS: BP 128/65
[2017-01-08] MEDS: HYDROcodone-ACET 5/325MG TAB PO PRN (09:00)
[2017-01-08] MEDS: SODIUM CHLOR 0.9% PF (SALINE LOCK) 10ML VIAL IV SCH ×2 (10:15→21:21)
[2017-01-08] MEDS: cefTRIAXone 1GM/50ML D5W 50 ML IV SCH (10:15)
[2017-01-08] MEDS: DOCUSATE SOD 100 MG CAP PO SCH ×2 (10:16→21:20)
[2017-01-08] MEDS: FLORASTOR (S. BOULARDII) 250 MG CAP PO SCH (10:16)
[2017-01-08 11:30] LABS: Platelet Estimate Adequate
[2017-01-08 13:00] VITALS: BP 107/74
[2017-01-08 17:00] VITALS: BP 123/72
[2017-01-08] MEDS: TEMAZEPAM 15 MG CAP PO PRN (21:20)
[2017-01-08 22:00] VITALS: BP 123/74
[2017-01-09] MEDS: ALBUTEROL SULF 2.5 MG/0.5ML(0.5%) NEB SOLN NEB SCH ×5 (00:31→20:35)
[2017-01-09] MEDS: HYDROmorphone HCL 2 MG/ML VL IV PRN ×4 (02:05→20:52)
[2017-01-09] MEDS: VANCOMYCIN 1,250 MG in D5W 5% 250 ML IV SCH (03:31)
[2017-01-09 05:06] VITALS: BP 106/54
[2017-01-09 07:25] LABS: Hematocrit 33.6 % (41.0-53.0); Hemoglobin 11.3 g/dL (13.5-17.5); Mean Corpuscular Hemoglobin 29.2 pg (28.0-32.0); Mean Corpuscular Hgb Conc. 33.8 g/dL (32.0-36.0); Mean Corpuscular Volume 86.5 fL (80.0-100.0); Mean Platelet Volume 6.1 fL (6.9-10.8); Platelet Count (auto) 363 10^3/uL (140-450); Red Cell Distribution Width 13.7 % (11.8-14.3); White Blood Cell 7.1 10^3/uL (4.4-10.8)
[2017-01-09 07:39] LABS: Metamyelocytes % 0; Myelocytes % 0; Promyelocytes % 0; Reactive Lymphocytes 0
[2017-01-09 07:44] LABS: Albumin 2.3 g/dL (3.4-5.0); BUN/Creatinine Ratio 28.6; Bilirubin, Total 0.3 mg/dL (0.2-1.0); Calcium 8.7 mg/dL (8.5-10.1); Total Protein 7.1 g/dL (6.4-8.2)
[2017-01-09 09:03] LABS: Platelet Estimate Adequate
[2017-01-09 09:31] VITALS: BP 126/68
[2017-01-09] MEDS: SODIUM CHLOR 0.9% PF (SALINE LOCK) 10ML VIAL IV SCH ×2 (09:56→17:49)
[2017-01-09] MEDS: cefTRIAXone 1GM/50ML D5W 50 ML IV SCH (09:56)
[2017-01-09] MEDS: DOCUSATE SOD 100 MG CAP PO SCH ×3 (09:59→21:32)
[2017-01-09] MEDS: PRO-STAT 64 30ML PO SCH ×2 (09:59→18:12)
[2017-01-09] MEDS: FLORASTOR (S. BOULARDII) 250 MG CAP PO SCH (10:00)
[2017-01-09] MEDS ORDERED: LEVOFLOXACIN 500 MG TAB PO ONE (11:15)
[2017-01-09 11:46] VITALS: BP 121/56
[2017-01-09 17:00] VITALS: BP 101/62
[2017-01-09 22:00] VITALS: BP 122/70
[2017-01-10] MEDS: HYDROmorphone HCL 2 MG/ML VL IV PRN ×2 (02:41→06:35)
[2017-01-10 05:00] VITALS: BP 111/67
[2017-01-10 07:03] LABS: Basophils # (auto) 0.1 uL; Basophils % (auto) 1.5 % (0.0-2.0); Eosinophils # (auto) 1.1 uL; Eosinophils % (auto) 14.4 % (0.0-7.0); Hematocrit 32.9 % (41.0-53.0); Hemoglobin 11.1 g/dL (13.5-17.5); Lymphocytes # (auto) 1.4 uL; Lymphocytes % (auto) 17.8 % (10.0-50.0); Mean Corpuscular Hemoglobin 29.4 pg (28.0-32.0); Mean Corpuscular Hgb Conc. 33.9 g/dL (32.0-36.0); Mean Corpuscular Volume 86.6 fL (80.0-100.0); Mean Platelet Volume 6.4 fL (6.9-10.8); Monocytes # (auto) 0.7 uL; Monocytes % (auto) 9.5 % (0.0-12.0); Neutrophils # (auto) 4.4 uL; Neutrophils % (auto) 56.8 % (37.0-80.0); Platelet Count (auto) 370 10^3/uL (140-450); Red Cell Distribution Width 13.5 % (11.8-14.3); White Blood Cell 7.7 10^3/uL (4.4-10.8)
[2017-01-10 07:21] LABS: Albumin 2.4 g/dL (3.4-5.0); BUN/Creatinine Ratio 18.5; Bilirubin, Total 0.3 mg/dL (0.2-1.0); Calcium 8.9 mg/dL (8.5-10.1); Potassium 4.4 mmol/L (3.5-5.1); Total Protein 7.1 g/dL (6.4-8.2)
[2017-01-10] MEDS: ALBUTEROL SULF 2.5 MG/0.5ML(0.5%) NEB SOLN NEB SCH (07:26)
[2017-01-10] MEDS: PRO-STAT 64 30ML PO SCH (07:51)
[2017-01-10] MEDS: HYDROcodone-ACET 5/325MG TAB PO PRN (09:09)
[2017-01-10 09:45] VITALS: BP 108/72
[2017-01-10] MEDS ORDERED: LEVOFLOXACIN 500 MG TAB PO SCH (10:00)
[2017-01-10] MEDS: SODIUM CHLOR 0.9% PF (SALINE LOCK) 10ML VIAL IV SCH (10:00)
[2017-01-10] MEDS: DOCUSATE SOD 100 MG CAP PO SCH (10:05)
[2017-01-10 11:38] VITALS: BP 108/72
[2017-01-10 12:10] VITALS: BP 108/72
== END 2017-01-10 12:35 | disposition home or self-care (01) | DRG 853 ==
LOC: ER 05:36 → TELE 05:37 → TELE-E-ADS 10:58 → TELE-CENTR 11:28 → CENTRAL 12-15 14:37 → DOU IN ICU 01-02 15:44 → TELE-WESTW 01-03 17:15 → WEST WING 01-08 19:42
PROVIDERS: ADMIT Internal Medicine; ATTEND Internal Medicine
PROC: 0W993ZZ Drainage of Right Pleural Cavity, Percutaneous Approach (ICD-10-PCS; 2016-12-24)
PROC: BB4BZZZ Ultrasonography of Pleura (ICD-10-PCS; 2016-12-24)
PROC: 0W9930Z Drainage of Right Pleural Cavity with Drainage Device, Percutaneous Approach (ICD-10-PCS; 2016-12-26)
PROC: BB4BZZZ Ultrasonography of Pleura (ICD-10-PCS; 2016-12-26)
PROC: 02HV33Z Insertion of Infusion Device into Superior Vena Cava, Percutaneous Approach (ICD-10-PCS; 2016-12-26)
PROC: 0BBN0ZZ Excision of Right Pleura, Open Approach (ICD-10-PCS; 2017-01-02)
PROC: 0W9900Z Drainage of Right Pleural Cavity with Drainage Device, Open Approach (ICD-10-PCS; 2017-01-02)
PROC: 0BBT0ZX Excision of Diaphragm, Open Approach, Diagnostic (ICD-10-PCS; principal; 2017-01-02 11:42)
DX: A41.9 Sepsis, unspecified organism (principal); J18.1 Lobar pneumonia, unspecified organism; J85.1 Abscess of lung with pneumonia; R73.9 Hyperglycemia, unspecified; N39.0 Urinary tract infection, site not specified; J90 Pleural effusion, not elsewhere classified; B96.20 Unspecified Escherichia coli [E. coli] as the cause of diseases classified elsewhere; Z85.07 Personal history of malignant neoplasm of pancreas; Z23 Encounter for immunization; Z80.0 Family history of malignant neoplasm of digestive organs
CPT/HCPCS: 36415; 36569; 71010; 71020; 71250; 71260; 74176; 76604; 76705; 76942; 80048; 80053; 80061; 80074; 80202; 81001; 83605; 83615; 83690; 83735; 83986; 85007; 85025; 85027; 85610; 85730; 86635; 86703; 86850; 86900; 86901; 87040; 87070; 87081; 87086; 87088; 87186; 87205; 89051; 93971; 94640; 96361; 96365; 96366; 96367; 96375; A4223; C1729; C2625; J0171; J0696; J1450; J1885; J1956; J2185; J2250; J2405; J2543; J2704; J3490; J7060